=== PATIENT | female | born 1985 | race African-American/Black ===

== ENCOUNTER 2019-07-27 06:50 | Inpatient (IN) | payer OTHER ==
[2019-07-27] VITALS (17 sets, daily range): BP systolic 121–160; BP diastolic 63–95; PULSE 52–85; RESP 14–20
[~2019-07-27] VITALS: Ht 175.3 cm; Wt 100.9 kg
[~2019-07-27 06:50] MED LIST: HYDR-4011 PO; IBUP-1542 PO; LABE200T25 PO; PREN-19 PO
[2019-07-27] MEDS ORDERED: LIDOCAINE 1% (MPF) 30 ML INJ ONE (07:15)
[2019-07-27] MEDS ORDERED: OXYTOCIN 30 UNITS/LR 500 ML BAG IV ONE (07:25)
[2019-07-27] MEDS ORDERED: SUCCINYLCHOLINE CHLORIDE 100 MG/5 ML SYG IV ONE (07:25)
[2019-07-27] MEDS ORDERED: FENTAnyl 50 MCG/ML VIAL ONE ×2 (07:26→07:54)
[2019-07-27] MEDS ORDERED: DEXAMETHASONE 4 MG/ML 1 ML INJ ONE (07:26)
[2019-07-27] MEDS ORDERED: ONDANSETRON 4 MG INJ ONE ×2 (07:26→08:47)
[2019-07-27] MEDS ORDERED: PROPOFOL 20 ML ONE (07:26)
[2019-07-27] MEDS ORDERED: METHYLERGONOVINE 0.2 MG INJ IM PRN ×2 (07:30→08:30)
[2019-07-27] MEDS ORDERED: CEFAZOLIN 2 GM/50 ML (PMX) 50 ML IVPB SCH (07:30)
[2019-07-27] MEDS ORDERED: CARBOPROST 250 MCG INJ IM PRN ×2 (07:30→08:30)
[2019-07-27] MEDS ORDERED: MISOPROSTOL 200 MCG TAB PR PRN ×2 (07:30→08:30)
[2019-07-27] MEDS ORDERED: OXYTOCIN 30 UNITS/LR 500 ML IV PRN ×2 (07:30→08:30)
[2019-07-27] MEDS ORDERED: morphine 2 MG INJ IV PRN ×2 (08:00)
[2019-07-27] MEDS ORDERED: DIPHENHYDRAMINE 50 MG INJ IV PRN (08:00)
[2019-07-27] MEDS ORDERED: NALBUPHINE HCL (10 MG/1 ML) INJ IV PRN (08:00)
[2019-07-27] MEDS ORDERED: NALOXONE (0.4 MG/ML) INJ IV PRN (08:00)
[2019-07-27] MEDS ORDERED: TRIMETHOBENZAMIDE 100 MG/ML VIAL IM PRN (08:00)
[2019-07-27] MEDS ORDERED: ONDANSETRON 4 MG INJ IV PRN ×2 (08:00→08:30)
[2019-07-27] MEDS ORDERED: HYDROmorphONE 0.5 MG/0.5 ML SYG IV PRN ×2 (08:00)
[2019-07-27] MEDS ORDERED: OXYTOCIN 30 UNITS/LR 500 ML IV SCH (08:28)
[2019-07-27] MEDS ORDERED: LACTATED RINGER'S 1,000 ML IV SCH (08:28)
[2019-07-27] MEDS ORDERED: ACETAMINOPHEN 325 MG TAB PO PRN (08:30)
[2019-07-27] MEDS ORDERED: LANOLIN HPA 1 PKT TOP PRN (08:30)
[2019-07-27] MEDS ORDERED: BISACODYL 10 MG SUPP PR PRN (08:30)
[2019-07-27] MEDS ORDERED: CEFAZOLIN 1 GM/50 ML (PMX) 50 ML IVPB SCH (08:30)
[2019-07-27] MEDS ORDERED: MAGNESIUM HYDROXIDE 30ML CUP PO PRN (08:30)
[2019-07-27] MEDS ORDERED: OXYCODONE/ACETAMINOPHEN (5/325) TAB PO PRN (08:30)
[2019-07-27] MEDS: KETOROLAC 30 MG INJ IV PRN ×2 (09:11→19:44)
[2019-07-27] MEDS ORDERED: hydrALAzine 20 MG INJ IV PRN (10:00)
[2019-07-27] MEDS ORDERED: LABETALOL HCL 20MG INJ IV PRN ×2 (10:00)
[2019-07-27] MEDS ORDERED: LABETALOL HCL 20MG INJ IV ONE (10:00)
[2019-07-27] MEDS: PIPER-TAZO 3.375 GM IV (PMX) 100 ML IVPB SCH ×3 (10:11→21:34)
[2019-07-27] MEDS: LACTATED RINGER'S 1,000 ML IV SCH ×3 (10:11→19:22)
[2019-07-27] MEDS ORDERED: hydrALAzine 20 MG INJ IV ONE (12:00)
[2019-07-27] MEDS ORDERED: LACTATED RINGER'S 500 ML IV ONE (15:30)
[2019-07-27] MEDS: LABETALOL 200 MG TAB PO SCH ×2 (16:12→23:04)
[2019-07-28 00:24] VITALS: BP 111/64; PULSE 82; RESP 18
[2019-07-28] MEDS: KETOROLAC 30 MG INJ IV PRN (03:00)
[2019-07-28] MEDS: PIPER-TAZO 3.375 GM IV (PMX) 100 ML IVPB SCH ×3 (03:00→21:33)
[2019-07-28 04:00] VITALS: BP 127/67; PULSE 81; RESP 18
[2019-07-28] MEDS: LACTATED RINGER'S 1,000 ML IV SCH ×2 (07:09→15:09)
[2019-07-28 07:30] VITALS: BP 113/66; PULSE 76; RESP 17
[2019-07-28] MEDS: LABETALOL 200 MG TAB PO SCH ×2 (09:54→20:42)
[2019-07-28 11:45] VITALS: BP 135/82; PULSE 85; RESP 18
[2019-07-28] MEDS: IBUPROFEN 600 MG TAB PO PRN ×2 (11:45→23:39)
[2019-07-28] MEDS: OXYCODONE/ACETAMINOPHEN (5/325) TAB PO PRN ×2 (14:44→20:42)
[2019-07-28 15:48] VITALS: BP 122/77; PULSE 85; RESP 18
[2019-07-28 19:30] VITALS: BP 133/76; PULSE 91; RESP 18
[2019-07-28] MEDS: SENNA/DOCUSATE NA (8.6MG/50MG) TAB PO PRN (20:42)
[2019-07-28] MEDS ORDERED: BISACODYL 10 MG SUPP PR PRN (22:30)
[2019-07-29] MEDS: OXYCODONE/ACETAMINOPHEN (5/325) TAB PO PRN ×2 (03:14→18:07)
[2019-07-29 04:02] VITALS: BP 119/78; PULSE 80; RESP 18
[2019-07-29] MEDS: PIPER-TAZO 3.375 GM IV (PMX) 100 ML IVPB SCH ×3 (05:28→21:35)
[2019-07-29] MEDS: IBUPROFEN 600 MG TAB PO PRN (05:29)
[2019-07-29 08:20] VITALS: BP 139/92; PULSE 66; RESP 16
[2019-07-29] MEDS: LABETALOL 200 MG TAB PO SCH ×2 (09:24→21:34)
[2019-07-29 16:00] VITALS: BP 117/76; PULSE 65; RESP 20
[2019-07-29 20:30] VITALS: BP 138/87; PULSE 61; RESP 19
[2019-07-29] MEDS: FERROUS GLUCONATE (EC) 325 MG TAB PO SCH (21:34)
[2019-07-30 00:15] VITALS: BP 140/87; PULSE 72; RESP 18
[2019-07-30 04:20] VITALS: BP 126/70; RESP 18
[2019-07-30] MEDS: PIPER-TAZO 3.375 GM IV (PMX) 100 ML IVPB SCH ×3 (06:26→21:18)
[2019-07-30 08:00] VITALS: BP 136/71; PULSE 56; RESP 18
[2019-07-30] MEDS: LABETALOL 200 MG TAB PO SCH ×2 (09:05→21:22)
[2019-07-30] MEDS: FERROUS GLUCONATE (EC) 325 MG TAB PO SCH (09:05)
[2019-07-30] MEDS: SENNA/DOCUSATE NA (8.6MG/50MG) TAB PO PRN (09:05)
[2019-07-30] MEDS: IBUPROFEN 600 MG TAB PO PRN (13:33)
[2019-07-30 16:00] VITALS: BP 129/77; PULSE 82; RESP 16
[2019-07-30 20:30] VITALS: BP 116/74; PULSE 82; RESP 18
[2019-07-30] MEDS: FERROUS SULFATE (EC) 325 MG TAB PO SCH (21:19)
[2019-07-30] MEDS: ASCORBIC ACID 500 MG TAB PO SCH (21:19)
[2019-07-30] MEDS: OXYCODONE/ACETAMINOPHEN (5/325) TAB PO PRN (22:01)
[2019-07-31] MEDS: OXYCODONE/ACETAMINOPHEN (5/325) TAB PO PRN (03:13)
[2019-07-31] MEDS: PIPER-TAZO 3.375 GM IV (PMX) 100 ML IVPB SCH ×2 (05:48→14:00)
[2019-07-31 08:15] VITALS: BP 146/84; PULSE 48; RESP 20
[2019-07-31] MEDS: ASCORBIC ACID 500 MG TAB PO SCH ×2 (09:34→13:05)
[2019-07-31] MEDS: FERROUS SULFATE (EC) 325 MG TAB PO SCH ×2 (09:34→13:05)
[2019-07-31 09:37] VITALS: BP 122/77; PULSE 78; RESP 20
[2019-07-31] MEDS: LABETALOL 200 MG TAB PO SCH (09:37)
== END 2019-07-31 16:22 | disposition home or self-care (01) | DRG 787 ==
LOC: L-D 06:50 → OBT 06:50 → L-D 07:04 → OBT 07:04 → L-D 07:13 → PP1 16:55
PROVIDERS: ADMIT Obstetrics & Gynecology Gynecology; ATTEND Obstetrics & Gynecology Gynecology
PROC: 10D00Z1 Extraction of Products of Conception, Low, Open Approach (ICD-10-PCS; principal; 2019-07-27 07:30)
DX: O76 Abnormality in fetal heart rate and rhythm complicating labor and delivery (principal); D62 Acute posthemorrhagic anemia; O34.211 Maternal care for low transverse scar from previous cesarean delivery; N85.8 Other specified noninflammatory disorders of uterus; Z3A.38 38 weeks gestation of pregnancy; Z37.0 Single live birth; O90.81 Anemia of the puerperium; O16.5 Unspecified maternal hypertension, complicating the puerperium; O90.89 Other complications of the puerperium, not elsewhere classified; R51 Headache
CPT/HCPCS: 74018; 80053; 80307; 81001; 81003; 82570; 84560; 85025; 85610; 85730; 86592; 86703; 86765; 86803; 86850; 86900; 86901; 87340; 88307; 93970; 99465; G0463; J0360; J1100; J1170; J1200; J1885; J2270; J2405; J2543; J2590; J3010; J7120